=== PATIENT | male | born 1945 | race Caucasian/White ===

== ENCOUNTER 2017-04-30 09:24 | Day surgery (SDC) | payer BC, MEDICARE ==
[~2017-04-30 09:24] MED LIST: Buffered Lidocaine 0.9% SYRIN* 5 ML/SYR SYRINGE INTRADERM ONE; Buffered Lidocaine 0.9% SYRIN* 5 ML/SYR SYRINGE ONE; Sodium Citrate/Citric Acid* 15 ML UDC ONE; Sodium Citrate/Citric Acid* 15 ML UDC PO ONE; ceFAZolin 2 GM PREMIX(*) 2 GM/50 ML BAG IVPB ONE
[2017-04-30] MEDS ORDERED: Bupivacaine 0.5% W/EPI SDV* 10 ML VIAL INJ ONE ×3 (10:14→12:59)
[2017-04-30] MEDS ORDERED: Midazolam* 1 MG/ML 2 ML VIAL (2 MG) ONE (12:27)
[2017-04-30] MEDS ORDERED: fentaNYL* 50 MCG/ML 2 ML VIAL (100 MCG VIAL) ONE ×2 (12:27→14:56)
[2017-04-30] MEDS ORDERED: Propofol* 10 MG/ML 20 ML BTL IV PUSH ONE (13:01)
[2017-04-30] MEDS ORDERED: Lidocaine 2% PF * 5 ML VIAL ONE (13:01)
[2017-04-30] MEDS ORDERED: Succinylcholine* 20 MG/ML 10 ML VIAL ONE (13:01)
[2017-04-30] MEDS ORDERED: Labetalol IV* 5 MG/ML 20 ML VIAL ONE (13:30)
[2017-04-30] MEDS ORDERED: Ketorolac INJ* 30 MG/ML 1 ML VIAL IV PRN (13:45)
[2017-04-30] MEDS ORDERED: fentaNYL* 50 MCG/ML 2 ML VIAL (100 MCG VIAL) IV PRN (13:45)
[2017-04-30] MEDS ORDERED: Ondansetron INJ* 2 MG/ML VIAL IV PRN (13:45)
[2017-04-30] MEDS ORDERED: oxyCODONE/Acetamin 5/325 MG* TAB PO PRN (14:26)
[2017-04-30] MEDS ORDERED: Ketorolac INJ* 30 MG/ML 1 ML VIAL ONE (14:43)
[2017-04-30] MEDS ORDERED: oxyCODONE/Acetamin 5/325 MG* TAB ONE (14:59)
[2017-04-30 15:34] VITALS: BP 140/84
--- NOTE | 2017-05-01 05:40 | OP ---
OPERATIVE REPORT: DATE OF OPERATION: 04/30/17 DATE OF : 49 SURGEON: Bryant Marc MD PCB DESIGNER: JOLLY Osborn ANESTHESIOLOGIST: Dr. Ward. ANESTHESIA: General endotracheal. PRE-OP DIAGNOSIS: Right inguinal hernia and umbilical hernia. POST-OP DIAGNOSIS: Right inguinal hernia, direct and recurrent umbilical hernia. OPERATIVE PROCEDURE: ESTIMATED BLOOD LOSS: Minimal. IV FLUIDS: Crystalloid. SPECIMEN: None. DRAINS: None. COMPLICATIONS: None. COUNTS: Instrument, needle, and sponge counts were correct. FINDINGS: Right direct inguinal hernia and umbilical hernia with incarcerated omentum and mesh pres ence in prior repair. DESCRIPTION OF PROCEDURE: The patient was brought to the operating room and placed on the table sup ine. Sequential compression devices were placed on both lower extremities. General anesthesia was administered. The abdomen was prepped and draped in the usual sterile fashion. He had a [place] cath eter in place. He received appropriate intravenous antibiotics. Local anesthetic was infiltrated infraumbilically and a curvilinear infraumbilical incision was crea zaid and then subcutaneous tissues were divided with cautery. The anterior rectus fascia was incised transversely just to the right of midline and the underlying muscles retracted laterally. Then the preperitoneal balloon dissector was positioned down the pubic symphysis and insufflated under direc t visualization. The balloon dissector was removed and replaced with 12 mm blunt port then carbon d ioxide was insufflated to a pressure of 10 mmHg. Under direct visualization, two 5 mm trocars were placed in the lower midline. Inspection revealed the presence of a direct [facility] The pubic symphysis, Chauncey's ligament, and inferior epigastric vessels were identified and pr eserved. The inspection of the femoral space did not reveal a hernia and there was no hernia in the indirect space either but there was peritoneal reflection on to the cord structures and the cord st ructures were dissected free, so that the peritoneum was able to retract back. Next, dissection pro ceeded laterally to the anterosuperior iliac spine. Using a Bard 3D Max large size patch, the right -sided hernia was repaired. The mesh was placed into the preperitoneal space and covered the direct , indirect, and femoral spaces. A CapSure tack was used to secure the mesh at the pubic symphysis a t the Chauncey's ligament and a single tack placed anterior just lateral to the inferior epigastric ve ssels. The space was allowed to desufflate under direct visualization assuring that the mesh was in good position. Next, the umbilical hernia was addressed and after elevating the umbilical stalk and divided from th e anterior abdominal wall, inspection revealed that there was an incarcerated piece of omentum in th e site and this was adherent to a hernia mesh that was partially cut during the dissection. The her anibal defect was repaired with a 2-0 Surgipro suture using 2 interrupted sutures to close the defect a nd then 3-0 Polysorb was used to reapproximate the umbilical stalk to the anterior abdominal wall, a nd the skin incisions were all closed with 4-0 Monocryl. The patient tolerated the procedure well, was extubated and transferred to recovery in stable condition. [id number]/[facility] #: [id number]
== END 2017-04-30 15:57 | disposition home or self-care (01) ==
LOC: OR 09:24
PROVIDERS: ATTEND Surgery
DX: K40.90 Unilateral inguinal hernia, without obstruction or gangrene, not specified as recurrent (principal); K42.0 Umbilical hernia with obstruction, without gangrene; E78.5 Hyperlipidemia, unspecified; K21.9 Gastro-esophageal reflux disease without esophagitis
CPT/HCPCS: A9270-GY; C1781; J0330; J0690; J1885; J2250; J2704; J3010

== ENCOUNTER 2024-09-14 06:08 | Observation (INO) ==
[~2024-09-14 06:08] MED LIST changes: -Buffered Lidocaine 0.9% SYRIN* 5 ML/SYR SYRINGE INTRADERM ONE; -Buffered Lidocaine 0.9% SYRIN* 5 ML/SYR SYRINGE ONE; +NS 0.45% 1000 ml BAG 1,000 ML IV SCH; +Naloxone 0.4 mg VIAL 0.4 mg/ml 1 ml VIAL IV PRN; +Ondansetron 4 mg VIAL 2 MG/ML 2 ml VIAL IV PRN; -Sodium Citrate/Citric Acid* 15 ML UDC ONE; -Sodium Citrate/Citric Acid* 15 ML UDC PO ONE; -ceFAZolin 2 GM PREMIX(*) 2 GM/50 ML BAG IVPB ONE; +fentaNYL 100 mcg/2 ml 50 MCG/ML VIAL IV PRN
[2024-09-14] MEDS ORDERED: Famotidine IV 10 MG/ML 2 ml VIAL (20 mg) ONE (06:42)
[2024-09-14] MEDS: Buffered Lidocaine 1% SYRIN 1 ml INTRADERM ONE (06:44)
[2024-09-14] MEDS: Famotidine IV 10 MG/ML 2 ml VIAL (20 mg) IV SLOW PU ONE (06:44)
[2024-09-14] MEDS: Scopolamine 1 mg/72hr PATCH TRANSDERM ONE (06:45)
[2024-09-14] MEDS: Lactated Ringers 1000 ml BAG 1,000 ML IV SCH (06:45)
[2024-09-14] MEDS ORDERED: Lidocaine 2% PF 5 ML VIAL ONE (06:54)
[2024-09-14] MEDS ORDERED: Ondansetron 4 mg VIAL 2 MG/ML 2 ml VIAL ONE (06:56)
[2024-09-14] MEDS ORDERED: fentaNYL 100 mcg/2 ml 50 MCG/ML VIAL ONE (06:56)
[2024-09-14] MEDS ORDERED: Propofol 10 MG/ML 20 ML BTL ONE (06:56)
[2024-09-14] MEDS ORDERED: Dexamethasone IV 4 MG/ML VIAL 1 ml VIAL ONE (06:56)
[2024-09-14 06:58] LABS: Rapid COVID-19 Molecular Undetected (Undetected)
[2024-09-14] MEDS ORDERED: Midazolam 2 mg/2 ml VIAL 1 mg/ml 2 ml VIAL (2 mg) ONE (07:12)
[2024-09-14] MEDS ORDERED: Ondansetron 4 mg VIAL 2 MG/ML 2 ml VIAL IV PRN (07:21)
[2024-09-14] MEDS ORDERED: Furosemide 20 mg/2 ml IV VIAL ONE (08:08)
[2024-09-14] MEDS: Gentamicin ADULT 320 MG in NS 0.9% 100 ml BAG 100 ML IVPB ONE (09:38)
[2024-09-14] MEDS: Ampicillin ADVAN 2 GM in NS 0.9% 100 ML 100 ML IVPB ONE (09:38)
[2024-09-14] MEDS: Acetaminophen IV 1 GM/100ML 1,000 MG/100 ML BAG IV ONE (09:39)
[2024-09-14] MEDS: NS 0.9% 1000 ml BAG 1,000 ML IV SCH (10:59)
[2024-09-14] MEDS: Neomycin/Polym/Bacit TOP OINT 15 GM TOPICAL SCH (11:01)
[2024-09-14] MEDS: Magnesium Hydroxide LIQ 30 ML UDC PO SCH (11:01)
[2024-09-15 06:42] VITALS: BP 136/87
== END 2024-09-15 10:06 | disposition home or self-care (01) ==
LOC: SSU 06:08 → OR 06:08
PROVIDERS: ADMIT Urology; ATTEND Urology